=== PATIENT | male | born 1985 | race African-American/Black ===

== ENCOUNTER 2019-11-07 15:24 | Emergency (ER) | payer SELFPAY ==
[~2019-11-07 15:24] MED LIST: CEPHALEXIN500 M1 PO
[2019-11-07 15:45] VITALS: TEMP 98.7
[2019-11-07 16:39] LABS: BASO # 0.1 (0.0-0.2); BASO % 0.7 % (0.0-2.0); EOS % 0.4 % (0-4.0); GRAN # 5.2 (1.4-6.5); GRAN % 73.3 % (42.2-75.2); HEMATOCRIT 48.1 % (42.0-52.0); LYMPH # 1.3 (1.2-3.4); MEAN CELL VOLUME 88 fl (80.0-100.0); MEAN CORPUSCULAR HEMOGLOBIN 29 pg (27.0-31.0); MEAN CORPUSCULAR HGB CONC 33 g/dl (33.0-37.0); MEAN PLATELET VOLUME 11.7 fl (7.4-10.4); MONO # 0.5 (0.1-0.6); MONO % 7.3 % (1.7-9.3); PLATELET COUNT 213 K/mm3 (130-400); RED BLOOD COUNT 5.49 M/mm3 (4.20-5.60); REDCELL DISTRIBUTION WIDTH-CV 12.7 % (11.5-14.5)
[2019-11-07 17:16] LABS: ALANINE AMINOTRANSFERASE 30 U/L (4-49); ALBUMIN 4.5 gm/dL (3.5-5.0); ALKALINE PHOSPHATASE 65 U/L (50-136); ANION GAP 11 mmol/L (7-16); AST,SGOT 33 U/L (15-37); BILIRUBIN,TOTAL 0.8 mg/dL (0.0-1.0); BLOOD UREA NITROGEN 10 mg/dL (9-20); C-REACTIVE PROTEIN 1.1 mg/dL (0.0-0.9); CALCIUM 9.5 mg/dL (8.4-10.2); CARBON DIOXIDE 22 mmol/L (22-30); CHLORIDE 105 mmol/L (98-107); CREATININE, serum 1.04 (0.66-1.25); GLUCOSE 99 mg/dL (74-106); POTASSIUM 3.6 mmol/L (3.4-5.0); SODIUM 138 mmol/L (137-145); TOTAL PROTEIN 7.8 gm/dL (6.4-8.2)
[2019-11-07 17:30] LABS: TROPONIN-I < 0.012 ng/mL (0.000-0.035)
[2019-11-07 17:59] VITALS: BP 146/90; PULSE 78
== END 2019-11-07 17:59 | disposition home or self-care (01) ==
LOC: COL.ER 15:24
PROVIDERS: Physician Assistant
DX: B34.9 Viral infection, unspecified (principal); F17.210 Nicotine dependence, cigarettes, uncomplicated

== ENCOUNTER 2020-12-22 09:04 | Emergency (ER) | payer SELFPAY ==
[~2020-12-22] VITALS: Ht 188 cm; Wt 100.0 kg
[2020-12-22 09:23] VITALS: TEMP 98.8
[2020-12-22 10:38] LABS: BASO # 0.1 (0.0-0.2); EOS # 0.1 (0.0-0.7); GRAN # 3.2 (1.4-6.5); HEMATOCRIT 44.5 % (42.0-52.0); HEMOGLOBIN 14.7 g/dl (13.5-18.0); LYMPH # 1.3 (1.2-3.4); LYMPH % 24.9 % (20.0-51.0); MEAN CELL VOLUME 87 fl (80.0-100.0); MEAN CORPUSCULAR HEMOGLOBIN 29 pg (27.0-31.0); MEAN CORPUSCULAR HGB CONC 33 g/dl (33.0-37.0); MEAN PLATELET VOLUME 11.5 fl (7.4-10.4); MONO # 0.5 (0.1-0.6); MONO % 9.9 % (1.7-9.3); PLATELET COUNT 275 K/mm3 (130-400); RED BLOOD COUNT 5.09 M/mm3 (4.20-5.60); REDCELL DISTRIBUTION WIDTH-CV 12.3 % (11.5-14.5)
[2020-12-22 10:51] LABS: ALANINE AMINOTRANSFERASE 19 U/L (4-49); ALBUMIN 4.3 gm/dL (3.5-5.0); ALKALINE PHOSPHATASE 46 U/L (50-136); ANION GAP 8 mmol/L (7-16); AST,SGOT 26 U/L (15-37); BILIRUBIN,TOTAL 0.3 mg/dL (0.0-1.0); BLOOD UREA NITROGEN 6 mg/dL (9-20); CALCIUM 9.6 mg/dL (8.4-10.2); CARBON DIOXIDE 26 mmol/L (22-30); CHLORIDE 105 mmol/L (98-107); GLUCOSE 124 mg/dL (74-106); POTASSIUM 3.5 mmol/L (3.4-5.0); SODIUM 139 mmol/L (137-145); TOTAL PROTEIN 7.3 gm/dL (6.4-8.2)
[2020-12-22 11:02] LABS: TROPONIN-I < 0.012 ng/mL (0.000-0.035)
[2020-12-22] MEDS ORDERED: XARELTO STARTER20 MG PO (13:41)
[2020-12-22 14:00] VITALS: BP 144/93; PULSE 79
== END 2020-12-22 14:00 | disposition home or self-care (01) ==
LOC: COL.ER 09:04
PROVIDERS: Personal Emergency Response Attendant
DX: U07.1 COVID-19 (principal); I26.99 Other pulmonary embolism without acute cor pulmonale; R79.1 Abnormal coagulation profile
CPT/HCPCS: Q9967

== ENCOUNTER 2021-07-27 08:40 | Emergency (ER) | payer OTHER, BC ==
[~2021-07-27] VITALS: Ht 188 cm; Wt 97.7 kg
[~2021-07-27 08:40] MED LIST changes: +XARELTO STARTER20 MG PO
[2021-07-27 08:48] VITALS: BP 146/81; TEMP 98
[2021-07-27 11:17] VITALS: PULSE 65
== END 2021-07-27 11:17 | disposition home or self-care (01) ==
LOC: COL.ER 08:40
DX: S80.02XA Contusion of left knee, initial encounter (principal); F17.210 Nicotine dependence, cigarettes, uncomplicated; Z86.718 Personal history of other venous thrombosis and embolism; V89.2XXA Person injured in unspecified motor-vehicle accident, traffic, initial encounter